=== PATIENT | female | born 1980 | race Native Hawaiian/Other Pacific Islander ===

== ENCOUNTER 2016-08-20 21:37 | Emergency (ER) | payer MEDICAID, OTHER ==
[2016-08-20] MEDS ORDERED: MOTRIN PO ONE (22:54)
[2016-08-20 23:25] LABS: Basophils % (Auto) 0.4 % (0.0-1.8); Eosinophils % (Auto) 1.4 % (0.0-4.3); Hemoglobin 12.1 gm/dl (10.1-14.3); Mean Corpuscular HGB Conc 34 % (30-34); Mean Corpuscular Hemoglobin 30 pg (28-32); Mean Corpuscular Volume 88 fl (79-97); Platelet Count 182 K/mm3 (140-440); Red Blood Count 4.08 M/mm3 (3.65-5.03); Red Cell Distribution Width 12.7 % (13.2-15.2); White Blood Count 9.2 K/mm3 (4.5-11.0)
--- NOTE | 2016-08-21 07:45 | Emergency Department Report ---
ED Female HPI - General Chief complaint: Urogenital-Female Stated complaint: VAGINAL BLEEDING,BACK PAIN,CRAMPING Time Seen by Provider: 08/21/16 06:16 Source: patient Mode of arrival: Ambulatory Limitations: No Limitations - History of Present Illness Initial comments: 35-year-old female with no significant past medical history presents to the hospital complaining of suprapubic cramping for the past week and vaginal bleeding for the past 4 days. Cramping is moderate, intermittent, worse palpation. No alleviating factors. Bleeding became heavy last night. Patient states this is early for her cycle since she just had a cycle 3 weeks ago. She has a history of 4 previous pregnancies without any miscarriages or abortions. No reports of nausea, vomiting, or dysuria. - Related Data Previous Rx's Medication Instructions Recorded Last Taken Type Acetaminophen/Codeine [Tylenol #3] 1 tab PO Q4HR PRN #30 tablet 09/30/15 Unknown Rx Ferrous Sulfate [Feosol 325 MG tab] 325 mg PO BID #120 tablet 09/30/15 Unknown Rx Ibuprofen [Motrin 600 MG tab] 600 mg PO Q6H PRN #60 tablet 09/30/15 Unknown Rx Acetaminophen [Acetaminophen TAB] 500 mg PO Q4HR PRN #30 tablet 08/21/16 Unknown Rx Vit-Fe Fumar-FA [ 1 tab PO QDAY #30 tablet 08/21/16 Unknown Rx Vitamin] Allergies Allergy/AdvReac Type Severity Reaction Status Date / Time No Known Allergies Allergy Verified 09/28/15 19:28 ED Review of Systems ROS: Stated complaint: VAGINAL BLEEDING,BACK PAIN,CRAMPING Other details as noted in HPI Comment: All other systems reviewed and negative Other: Constitutional: No fevers chills Eyes: No eye pain visual changes ENT: No ear pain or throat pain Neck: Denies pain Respiratory: Denies cough wheezing shortness of breath Cardiovascular: Denies chest pain, palpitations, syncope GI: Deniesnausea, vomiting, diarrhea : Denies dysuria, urinary frequency, or urgency Musculoskeletal: Denies back pain Skin: Denies rash, lesions, erythema Neurologic: Denies headache, numbness, weakness Psychiatric: Denies suicidal ideation, hallucinations ED Past Medical Hx - Past Medical History Previous Medical History?: No Hx Hypertension: No Hx Congestive Heart Failure: No Hx Diabetes: No Hx Deep Vein Thrombosis: No Hx Renal Disease: No Hx Sickle Cell Disease: No Hx Seizures: No Hx Asthma: No Hx COPD: No Hx HIV: No - Surgical History Past Surgical History?: No - Social History Smoking Status: Never Smoker Substance Use Type: None - Medications Home Medications: Home Medications Medication Instructions Recorded Confirmed Last Taken Type Acetaminophen/Codeine [Tylenol #3] 1 tab PO Q4HR PRN #30 tablet 09/30/15 Unknown Rx Ferrous Sulfate [Feosol 325 MG tab] 325 mg PO BID #120 tablet 09/30/15 Unknown Rx Ibuprofen [Motrin 600 MG tab] 600 mg PO Q6H PRN #60 tablet 09/30/15 Unknown Rx Acetaminophen [Acetaminophen TAB] 500 mg PO Q4HR PRN #30 tablet 08/21/16 Unknown Rx Vit-Fe Fumar-FA [ 1 tab PO QDAY #30 tablet 08/21/16 Unknown Rx Vitamin] ED Physical Exam - General Limitations: No Limitations - Other Other exam information: General: No limitations, patient is alert in no acute distress Head exam: Atraumatic, normocephalic Eyes exam: Normal appearance, pupils equal reactive to light, extraocular movements intact ENT: Moist mucous membrane, normal oropharynx Neck exam: Normal inspection, full range of motion, no meningismus nontender Respiratory exam: Clear to auscultation bilateral, no wheezes, rales, crackles Cardiovascular: Normal rate and rhythm, normal heart sounds Abdomen: Soft, nondistended, mild suprapubic tenderness, with normal bowel sounds, no rebound, or guarding : Minimum vaginal bleeding. External os open but internal os closed. No CMT or adnexal tenderness Extremity: Full range of motion normal inspection no deformity Back: Normal Inspection, full range of motion, no tenderness Neurologic: Alert, oriented x3, cranial nerves intact, no motor or sensory deficit Psychiatric: normal affect, normal mood Skin: Warm, dry, intact ED Course Vital Signs 08/20/16 08/21/16 08/21/16 22:44 06:08 06:10 Temperature 98.4 F Pulse Rate 66 67 Respiratory 18 13 Rate Blood Pressure 107/66 104/56 104/56 Blood Pressure 107/66 [Left] O2 Sat by Pulse 100 99 Oximetry 08/21/16 06:20 Temperature Pulse Rate 75 Respiratory 11 L Rate Blood Pressure 96/67 Blood Pressure [Left] O2 Sat by Pulse 100 Oximetry - Consultations Consultation #1: 08/21/16 09:[address] Hoover FOREST LOGISTICS MANAGER physician assistant front end manager. Recommend repeat hCG Quant within 3 days ED Medical Decision Making - Lab Data Result diagrams: 08/20/16 23:11 Lab Results 08/20/16 08/20/16 08/21/16 Range/Units 23:11 23:11 06:21 WBC 9.2 (4.5-11.0) K/mm3 RBC 4.08 (3.65-5.03) M/mm3 Hgb 12.1 (10.1-14.3) gm/dl Hct 36.0 (30.3-42.9) % MCV 88 (79-97) fl MCH 30 (28-32) pg MCHC 34 (30-34) % RDW 12.7 L (13.2-15.2) % Plt Count 182 (140-440) K/mm3 Lymph % (Auto) 23.8 (13.4-35.0) % [place] % (Auto) 5.8 (0.0-7.3) % Eos % (Auto) 1.4 (0.0-4.3) % Baso % (Auto) 0.4 (0.0-1.8) % Lymph # 2.2 (1.2-5.4) K/mm3 [place] # 0.5 (0.0-0.8) K/mm3 Eos # 0.1 (0.0-0.4) K/mm3 Baso # 0.0 (0.0-0.1) K/mm3 Seg Neutrophils % 68.6 (40.0-70.0) % Seg Neutrophils # 6.3 (1.8-7.7) K/mm3 HCG, Qual Positive (Negative) HCG, Quant 2135 H (0-4) mIU/mL Blood Type 08/21/16 Range/Units 06:25 WBC (4.5-11.0) K/mm3 RBC (3.65-5.03) M/mm3 Hgb (10.1-14.3) gm/dl Hct (30.3-42.9) % MCV (79-97) fl MCH (28-32) pg MCHC (30-34) % RDW (13.2-15.2) % Plt Count (140-440) K/mm3 Lymph % (Auto) (13.4-35.0) % [place] % (Auto) (0.0-7.3) % Eos % (Auto) (0.0-4.3) % Baso % (Auto) (0.0-1.8) % Lymph # (1.2-5.4) K/mm3 [place] # (0.0-0.8) K/mm3 Eos # (0.0-0.4) K/mm3 Baso # (0.0-0.1) K/mm3 Seg Neutrophils % (40.0-70.0) % Seg Neutrophils # (1.8-7.7) K/mm3 HCG, Qual (Negative) HCG, Quant (0-4) mIU/mL Blood Type O POSITIVE Wet prep negative. Gonorrhea chlamydia pending - Radiology Data Radiology results: report reviewed Transvaginal/pelvic ultrasound: No IUP at this time. Thickened endometrial stripe. 2.6cm cystic structure right ovary with mild increased peripheral color flow. Ectopic is a diagnosis of exclusion of the right ovary. - Medical Decision Making Patient has vaginal bleeding with the hCG in the 2000 range and no IUP identified on ultrasound. Patient does not require RhoGAM based on the type O+ . Case was discussed with FOREST LOGISTICS MANAGER recommends repeat hCG in 3 days. Patient will be provided ectopic precautions as well. - Differential Diagnosis ectopic , miscarriage, threatened Critical Care Time: No Critical care attestation.: If time is entered above; I have spent that time in minutes in the direct care of this critically ill patient, excluding procedure time. ED Disposition Clinical Impression: Vaginal bleeding, Early stage of Ovarian cyst Qualifiers: Laterality: right Qualified Code(s): N83.201 - Unspecified ovarian cyst, right side Disposition: DISCHARGED TO HOME OR SELFCARE Is pt being admited?: No Does the pt Need Aspirin: No Condition: Stable Instructions: Ectopic (ED), Threatened Miscarriage (ED), Ovarian Cyst (ED) Additional Instructions: you are with vaginal bleeding. Today we do not see a baby on ultrasound. This could mean 3 different possibilities. 1. Your is very early and it is too early to see anything on ultrasound. 2. We are not seeing a because you are in your tubes. 3. You're having active miscarriage. To accurately diagnose the state of your you will need to follow-up in 3 days for repeat blood work in beta hCG/baby hormone testing so we can deterine if this number is increasing (still ) or decreasing (active miscarriage). You may follow-up with the FOREST LOGISTICS MANAGER office provider or return to the ER if you are unable to follow up with the clinic for repeat testing. In the meantime please return if you have worsening/severe pain, vag aginal bleeding with greater than 1 pad per hour, or feel like you are going to pass out. Usted est embarazada con sangrado vaginal. Hoy no vemos a un beb con ultrasonido. [place] podra significar selvin posibilidades diferentes. 1. Vazquez embarazo es muy temprano y es demasiado pronto para floridalma algo en la ecografa. 2. No estamos viendo un embarazo porque usted est embarazada en estuardo tubos. 3. Tienes un aborto espontneo activo. Para diagnosticar con precisin el estado de vazquez embarazo necesitar un seguimiento en 3 lópez para repetir el anlisis de moe en las pruebas beta de hCG / hormona del beb para determinar si martha nmero aumenta (sigue embarazada ) o disminuye (aborto espontneo activo). Usted puede hacer el seguimiento con el proveedor de la oficina de FOREST LOGISTICS MANAGER o regresar a la carolina de emergencias si no puede seguir con la clnica para repetir las pruebas. Mientras tanto, por favor regrese si tiene empeoramiento / dolor intenso, sangrado vaginal con ms de 1 almohadilla por hora, o siente que va a desmayarse. Prescriptions: Acetaminophen [Acetaminophen TAB] 500 mg PO Q4HR PRN #30 tablet PRN Reason: Pain Vit-Fe Fumar-FA [ Vitamin] 1 tab PO QDAY #30 tablet Referrals: CHIRAG HOOVER MD [Staff Physician] - 2-3 Days (3 days ) Time of Disposition: 10:09 Print Language: ISRAELI
--- NOTE | 2016-08-21 08:04 | Ultrasound Report ---
FINAL REPORT PROCEDURE: US OB \T\lt; = 14 WEEKS FETUS TECHNIQUE: Real-time transabdominal sonography of the uterus, placenta, amniotic fluid, adnexa, and fetus was performed with image documentation. Measurements were obtained to determine age/size. M-mode Doppler was used to document heartbeat. CPT 12073 HISTORY: vag bleeding, , cramps COMPARISON: No prior studies are available for comparison. FINDINGS: CRL: No IUP seen. No heart tones seen. Uterus: 9.9 centimeters Endometrial stripe: Thickened at 28 millimeters Cervix: Normal. Right Ovary: 4.5 x 3.0 centimeters with normal flow. There is a nonspecific 2.6 centimeter cyst right adnexa about the right ovary without significant peripheral flow. No ring of fire color flow seen. Although less likely, with this morphology, ectopic is not entirely excludable. Followup is advised as warranted Left Ovary: 2.7 x 3.3 centimeters with normal flow. IMPRESSION: No IUP seen at this time. Thickened endometrium. Nonvascular cystic structure left adnexa. Followup advised as warranted
--- NOTE | 2016-08-21 08:07 | Ultrasound Report ---
FINAL REPORT PROCEDURE: US OB TRANSVAGINAL TECHNIQUE: Real-time transvaginal sonography of the uterus, placenta, amniotic fluid, adnexa, and fetus was performed with image documentation. Measurements were obtained to determine age/size. M-mode Doppler was used to document heartbeat. CPT 64791 HISTORY: vag bleeding, , cramps COMPARISON: Transabdominal study today FINDINGS: CRL: No IUP is seen. Uterus: 9.9 centimeters Endometrial stripe: 28 millimeters Right Ovary: 4.5 x 3.0 centimeters with normal flow. 2.6 centimeters cystic structure nonspecific right ovary. Slight increased peripheral color flow on transvaginal relative to the team sports sales associate study. Ectopic remains the diagnosis of exclusion with higher degree of suspicion on the transvaginal study versus the team sports sales associate study Left Ovary: 2.7 x 3.3 centimeters with normal flow. Comment: Followup is advised. No free fluid. IMPRESSION: No IUP seen at this time. Thickened endometrial stripe. Cystic structure right ovary with mild increased peripheral color flow more conspicuously depicted on this transvaginal study versus the team sports sales associate study. Ectopic is the diagnosis of exclusion of the right ovary. Followup is advised.
[2016-08-21] MEDS ORDERED: TYLENOL PO ONE (08:13)
[2016-08-21] MEDS ORDERED: TYLENOL ONE (10:31)
[2016-08-21 10:38] VITALS: BP 102/60
== END 2016-08-21 10:38 | disposition home or self-care (01) ==
LOC: ED 21:37
DX: O20.9 Hemorrhage in early pregnancy, unspecified (principal); O26.899 Other specified pregnancy related conditions, unspecified trimester; N83.201 Unspecified ovarian cyst, right side; Z3A.00 Weeks of gestation of pregnancy not specified
CPT/HCPCS: 36415; 76801; 76817; 84702; 84703; 85025; 86900; 86901; 87210; 87591

== ENCOUNTER 2016-08-27 05:50 | Emergency (ER) | payer SELFPAY ==
[2016-08-27 06:59] LABS: Basophils % (Auto) 0.2 % (0.0-1.8); Eosinophils % (Auto) 3.2 % (0.0-4.3); Hematocrit 34.8 % (30.3-42.9); Hemoglobin 12.1 gm/dl (10.1-14.3); Mean Corpuscular HGB Conc 35 % (30-34); Mean Corpuscular Hemoglobin 30 pg (28-32); Mean Corpuscular Volume 86 fl (79-97); Platelet Count 209 K/mm3 (140-440); Red Blood Count 4.03 M/mm3 (3.65-5.03); Red Cell Distribution Width 12.5 % (13.2-15.2); White Blood Count 7.7 K/mm3 (4.5-11.0)
--- NOTE | 2016-08-27 08:47 | Emergency Department Report ---
ED Female HPI - General Chief complaint: Vaginal Bleeding Stated complaint: ABDOMINAL PAIN Time Seen by Provider: 08/27/16 08:46 Source: patient Mode of arrival: Ambulatory Limitations: Language Barrier - History of Present Illness Initial comments: Patient was seen at this facility on July 21 complaining of vaginal bleeding for 4 days. She had a mole menses she thought 3 weeks prior. She had a history of 4 previous gestations the last approximately one year ago here spontaneous vaginal delivery without complication. At that time she had a beta- hCG which was greater then 1999. Her ultrasound showed no IUP at that time. He did not follow-up with an project internship. She returns today stating she's had some lower abdominal discomfort and intermittent bleeding which is not active at this time. She was found now to have a quantitative hCG of 154.5. MD Complaint: vaginal bleeding -: week(s) Quality: cramping Consistency: intermittent, now resolved Improves with: none Worsens with: none - Related Data Home Medications Medication Instructions Recorded Confirmed Last Taken Acetaminophen [Acetaminophen 8 650 mg PO Q4HR PRN 08/27/16 08/27/16 Unknown Hour] Complete Caplet 1 tab PO DAILY 08/27/16 08/27/16 Unknown Previous Rx's Medication Instructions Recorded Last Taken Type HYDROcodone/APAP 5-325 [[place] 1 each PO Q6HR PRN #14 tablet 08/27/16 Unknown Rx 5/325] Allergies Allergy/AdvReac Type Severity Reaction Status Date / Time No Known Allergies Allergy Verified 09/28/15 19:28 ED Review of Systems ROS: Stated complaint: ABDOMINAL PAIN Other details as noted in HPI Constitutional: denies: chills, fever Eyes: denies: eye pain, eye discharge, vision change ENT: denies: ear pain, throat pain Respiratory: denies: cough, shortness of breath, wheezing Cardiovascular: denies: chest pain, palpitations Endocrine: no symptoms reported Gastrointestinal: abdominal pain (lower). denies: nausea, diarrhea Genitourinary: as per HPI (lower abdominal). denies: urgency, dysuria, discharge Musculoskeletal: denies: back pain, joint swelling, arthralgia Skin: denies: rash, lesions Neurological: denies: headache, weakness, paresthesias Psychiatric: denies: anxiety, depression Hematological/Lymphatic: denies: easy bleeding, easy bruising ED Past Medical Hx - Past Medical History Previous Medical History?: No Hx Hypertension: No Hx Congestive Heart Failure: No Hx Diabetes: No Hx Deep Vein Thrombosis: No Hx Renal Disease: No Hx Sickle Cell Disease: No Hx Seizures: No Hx Asthma: No Hx COPD: No Hx HIV: No - Surgical History Past Surgical History?: No - Social History Smoking Status: Never Smoker Substance Use Type: None - Medications Home Medications: Home Medications Medication Instructions Recorded Confirmed Last Taken Type Acetaminophen [Acetaminophen 8 650 mg PO Q4HR PRN 08/27/16 08/27/16 Unknown History Hour] HYDROcodone/APAP 5-325 [[place] 1 each PO Q6HR PRN #14 tablet 08/27/16 Unknown Rx 5/325] Complete Caplet 1 tab PO DAILY 08/27/16 08/27/16 Unknown History ED Physical Exam - General Limitations: Language Barrier General appearance: alert, in no apparent distress - Head Head exam: Present: atraumatic, normocephalic - Eye Eye exam: Present: normal appearance - ENT ENT exam: Present: mucous membranes moist - Neck Neck exam: Present: normal inspection - Respiratory Respiratory exam: Present: normal lung sounds bilaterally. Absent: respiratory distress - Cardiovascular Cardiovascular Exam: Present: regular rate, normal rhythm. Absent: systolic murmur, diastolic murmur, rubs, gallop - GI/Abdominal GI/Abdominal exam: Present: soft, normal bowel sounds. Absent: distended, tenderness, guarding, rebound, rigid - External exam: Absent: bleeding Speculum exam: Present: other (supplanted by ultrasound) - Extremities Exam Extremities exam: Present: normal inspection - Back Exam Back exam: Present: normal inspection - Neurological Exam Neurological exam: Present: alert, oriented X3, CN II-XII intact. Absent: motor sensory deficit - Psychiatric Psychiatric exam: Present: normal affect, normal mood - Skin Skin exam: Present: warm, dry, intact, normal color. Absent: rash ED Course Vital Signs 08/27/16 08/27/16 08/27/16 06:05 07:00 07:03 Temperature 98.0 F Pulse Rate 81 70 Respiratory 16 18 18 Rate Blood Pressure 97/53 Blood Pressure 101/51 [Left] O2 Sat by Pulse 100 100 100 Oximetry 08/27/16 08:53 Temperature 98.2 F Pulse Rate 70 Respiratory 16 Rate Blood Pressure Blood Pressure 100/39 [Left] O2 Sat by Pulse 100 Oximetry - Reevaluation(s) Reevaluation #1: Patient had no active bleeding in the emergency department. She did not complain of any substantial pain. She is referred to MENTAL HEALTH DIRECTOR for follow-up again. 08/27/16 11:21 ED Medical Decision Making - Lab Data Result diagrams: 08/27/16 06:30 Laboratory Results - last 24 hr 08/27/16 08/27/16 06:30 06:30 WBC 7.7 RBC 4.03 Hgb 12.1 Hct 34.8 MCV 86 MCH 30 MCHC 35 H RDW 12.5 L Plt Count 209 Lymph % (Auto) 40.9 H [place] % (Auto) 8.5 H Eos % (Auto) 3.2 Baso % (Auto) 0.2 Lymph # 3.2 [place] # 0.7 Eos # 0.2 Baso # 0.0 Seg Neutrophils % 47.2 Seg Neutrophils # 3.6 HCG, Quant 154.5 H Critical care attestation.: If time is entered above; I have spent that time in minutes in the direct care of this critically ill patient, excluding procedure time. ED Disposition Clinical Impression: Inevitable Disposition: DISCHARGED TO HOME OR SELFCARE Is pt being admited?: No Does the pt Need Aspirin: No Condition: Stable Instructions: Spontaneous Miscarriage (ED), Threatened Miscarriage (ED) Additional Instructions: You should expect to have some continued vaginal bleeding until the has past. Most of the time this will occur without a surgical procedure. However sometimes the uterus will have to be emptied by a typing element machine operator. It is essential that you follow up with MENTAL HEALTH DIRECTOR M.D. Your previous delivery was with Dr. Howard.. Return any significant bleeding or pain as needed. Return any fever or chills or significant abdominal discomfort. Prescriptions: HYDROcodone/APAP 5-325 [[place] 5/325] 1 each PO Q6HR PRN #14 tablet PRN Reason: Pain Referrals: PRIMARY CAREMD [Primary Care Provider] - 3-5 Days NICOLETTE HOWARD MD [Staff Physician] - 2-3 Days Time of Disposition: 11:24 Print Language: KOREAN
--- NOTE | 2016-08-27 10:11 | Ultrasound Report ---
TRANSABDOMINAL AND TRANSVAGINAL OBSTETRICAL ULTRASOUND:08/27/16 CLINICAL: Vaginal bleeding and decreasing hCG. COMPARISON: 08/21/16 FINDINGS: Transabdominal and transvaginal ultrasound demonstrated no intrauterine gestational sac. Heterogeneous echogenic material in the uterine cavity measures 15.7 mm compared to 28.0 mm on the last exam. The cervix is closed. No adnexal mass or free fluid. 2.5 cm cyst of the right ovary is unchanged compared to the prior exam.The right ovary measures 3.8 x 2.0 x 3.4cm. The left ovary measures 2.8 x 1.7 x 1.2cm. IMPRESSION: Failed intrauterine with retained products of conception. Right corpus luteum cyst.
[2016-08-27 12:13] VITALS: BP 106/59
== END 2016-08-27 12:00 | disposition home or self-care (01) ==
LOC: ED 05:50
DX: O03.9 Complete or unspecified spontaneous abortion without complication (principal); Z3A.00 Weeks of gestation of pregnancy not specified
CPT/HCPCS: 36415; 76801; 76817; 84702; 85025; 86850; 86900; 86901